=== PATIENT | male | born 1945 | race Caucasian/White ===

== ENCOUNTER 2020-02-26 08:09 | Outpatient (CLI) | payer OTHER, SELFPAY ==
--- NOTE | ~2020-02-26 | NM_ITS ---
EXAMINATION: NM bone scan whole body DATE: 02/26/2020 11:59 INDICATION: Prostate cancer TECHNIQUE: 26.5 mCi Tc-99m HDP was administered intravenously. Delayed whole-body scintigrams were o btained. COMPARISON: CT abdomen and pelvis dated 02/26/2020 FINDINGS: Moderate likely degenerative joint centered uptake extending along the L2-L3 disc space with correspo nding severe disc height loss and degenerative endplate changes evident at this level on prior CT. Si milar slightly less intense likely degenerative uptake centered along the L1-L2, C5-6 and T6-T7 disc spaces. There is also mild likely degenerative joint centered uptake at the bilateral acromioclavicul ar joints and several of the bilateral cervical facet joints. Mild increased uptake at the right grea ter trochanter with corresponding small enthesophytes on the prior CT. No other suspicious foci of ab normal bone uptake to suggest metastatic disease. IMPRESSION: 1. Typical distribution/appearance of a few foci of likely degenerative bone uptake as detailed above . No lesion suspicious for metastatic disease. Reviewed, dictated and finalized at location A. IMPRESSION: 1. Typical distribution/appearance of a few foci of likely degenerative bone up take as detailed above. No lesion suspicious for metastatic disease.
--- NOTE | ~2020-02-26 | CT_ITS ---
EXAMINATION: CT abdomen pelvis w con DATE: 02/26/2020 08:50 INDICATION: Prostate cancer TECHNIQUE: Computed tomography (CT) of the abdomen and pelvis was performed with 100 cc Omnipaque 350 intravenous contrast. Automated exposure control and iterative reconstruction technique were employe d. Exam dose: 716.36 mGy-cm total exam DLP. COMPARISON: None. FINDINGS: There is discoid atelectasis and/or scarring in both lung bases, including middle lobe and particularly left lower lobe. Mild predominantly dependent infiltrate or atelectasis at both lower lo bes. Normal heart size. No pericardial or pleural effusion. The liver, gallbladder, bile ducts, spleen, pancreas, pancreatic duct, and adrenal glands are unremar kable. 1.4-3.6 cm upper and lower pole right renal cysts 1.7 cm lower pole left renal cyst. 2.2 mm nonobstructing lower pole right renal calculus. 2 mm nonobstructing mid left renal calculus. No ureteral calculus or hydroureteronephrosis. There is mild diffuse thickening of the urinary bladder wall and moderate prostate enlargement. Small fat-containing inguinal hernias, left larger than right. There is atherosclerotic calcification but no aneurysm of the abdominal aorta or iliac arteries. No i ntraperitoneal or retroperitoneal or pelvic mass lesion or adenopathy or ascites. No evidence of appendicitis. Diverticulosis of the colon; no CT evidence of diverticulitis. No bowel obstruction, bowel wall thick ening, pneumatosis or intraperitoneal free air. Degenerative changes of the thoracic and lumbar spine, most pronounced at L2-3 with severe degenerati ve disease and mild retrolisthesis at this level. There is moderately prominent degenerative disc dis ease at L4-5 and L5-S1 due to a greater extent, with mild retrolisthesis at L5-S1. No suspicious osteolytic or osteoblastic lesions are noted. IMPRESSION: 1.4 and 3.6 cm right renal cysts. IMPRESSION: Bilateral renal cysts Small nonobstructing calculus of each kidney Prostate enlargement Diverticulosis of the colon; no CT evidence of diverticulitis Reviewed, dictated and finalized at [facility]. Reviewed, dictated and finalized at location A. IMPRESSION: 1.4 and 3.6 cm right renal cysts.
[2020-02-26 08:41] LABS: Estimated Glomerular Filt Rate 60
== END 2020-02-26 08:10 | disposition home or self-care (01) ==
PROVIDERS: PCP Family Medicine Adolescent Medicine; Visit Provider Urology
DX: C61 Malignant neoplasm of prostate (principal); N28.1 Cyst of kidney, acquired; N20.0 Calculus of kidney; N40.0 Benign prostatic hyperplasia without lower urinary tract symptoms; K57.30 Diverticulosis of large intestine without perforation or abscess without bleeding
CPT/HCPCS: 74177; 78306; A9561; Q9967

== ENCOUNTER 2020-03-23 09:54 | Outpatient (CLI) | payer OTHER, SELFPAY ==
--- NOTE | ~2020-03-23 | XR_ITS ---
EXAMINATION: XR chest 2V DATE: 03/23/2020 11:17 INDICATION: Malignant neoplasm of the prostate TECHNIQUE: Frontal and lateral views of the chest are obtained COMPARISON: None available FINDINGS: The lungs are free of focal airspace opacities. There is mild atelectasis of the lung bases . There is no pleural effusion or pneumothorax. The cardiomediastinal silhouette is normal. There is moderate thoracic spondylosis. IMPRESSION: 1. No acute cardiopulmonary abnormality. Reviewed, dictated and finalized at location A. OR HELPER
--- NOTE | 2020-03-23 10:53 | ECG_ITS ---
Measurements Intervals [place] Rate: 67 P: 47 KS: 184 QRS: -15 QRSD: 167 T: 99 QT: 447 QTc: 474 Interpretive Statements SINUS RHYTHM ATRIAL PREMATURE COMPLEXES LEFT BUNDLE BRANCH BLOCK BASELINE ARTIFACT- I, II, III, AVR, AVL, AVF ABNORMAL ECG Electronically Signed On 03-23-2020 12:19:04 [employer]OUNTS RECEIVABLE COLLECTOR by Robert Ribeiro D.O.
[2020-03-23 12:11] LABS: Add Urine Microscopic? NO; Appearance Urine Clear (Clear); Bilirubin Urine Negative (Negative); Blood Urine Negative (Negative); Color Urine Yellow (Yellow); Glucose Urine UA Negative (Negative); Ketones Urine Negative (Negative); Leukocyte Esterase Ur Negative LEU/UL (Negative); Nitrate Urine Negative (Negative); Protein Urine Negative (Negative); Specific Grav Ur 1.015 (1.001-1.035); Urobilinogen Urine Negative mg/dL (<2.0)
[2020-03-23 12:15] LABS: Basophils Absolute Auto 0.1 K/mm3 (0.0-0.1); Basophils Percent Auto 0.6 % (0.2-1.2); Eosinophils Absolute Auto 0.1 K/mm3 (0-0.3); Hematocrit 47.7 % (42.0-52.0); Hemoglobin 16.1 g/dL (14.0-18.0); Immature Granulocyte Absolute 0.03 K/mm3 (0.00-0.031); Immature Granulocyte Percent A 0.4 % (0-0.5); Lymphocytes Absolute Auto 2.11 K/mm3 (0.9-3.2); Lymphocytes Percent Auto 27.3 % (18.3-44.2); Mean Corpuscular HGB Conc 33.8 g/dl (32-36); Mean Corpuscular Hemoglobin 31.6 pg (26-34); Mean Corpuscular Volume 93.7 fl (80-100); Mean Platelet Volume 10.1 fl (7.4-10.4); Monocytes Absolute Auto 0.5 K/mm3 (0.1-0.6); Neutrophils Absolute Auto 4.9 K/mm3 (1.3-6.7); Neutrophils Percent Auto 63.7 % (45.5-73.1); Platelet Count Result 201 k/mm3 (150-375); Red Blood Count 5.09 M/mm3 (4.6-6.20); Red Cell Distribution Width 13.3 % (11.5-14.5); White Blood Count 7.7 K/mm3 (4.5-10.0)
[2020-03-23 12:22] LABS: Alanine Aminotransferase 47 U/L (4-50); Albumin Level 4.2 g/dL (3.5-5.1); Alkaline Phosphatase 72 U/L (38-126); Anion Gap 9 mmol/L (8-16); Aspartate Amino Transferase 38 U/L (17-59); Bilirubin,Total 0.5 mg/dL (0.2-1.3); Blood Urea Nitrogen 18 mg/dL (9-20); Calcium 9.6 mg/dL (8.4-10.2); Carbon Dioxide 30 mmol/L (22-30); Chloride 102 mmol/L (98-107); Estimated Glomerular Filt Rate > 60; Glucose 94 mg/dL (75-110); Potassium 4.4 mmol/L (3.4-5.0); Sodium 141 mmol/L (137-145)
[2020-03-23 12:23] LABS: Prothrombin Time 13.8 Seconds (11.1-14.7)
[2020-03-23 12:24] LABS: Partial Thromboplastin Time 36.2 SECONDS (22.3-36.8)
== END 2020-03-23 09:55 | disposition home or self-care (01) ==
LOC: ANHSURGERY 09:55
PROVIDERS: PCP Family Medicine Adolescent Medicine; Visit Provider Urology
DX: Z01.812 Encounter for preprocedural laboratory examination (principal); Z01.83 Encounter for blood typing; Z01.810 Encounter for preprocedural cardiovascular examination; C61 Malignant neoplasm of prostate
CPT/HCPCS: 36415; 71046; 80053; 81003; 85025; 85610; 85730; 86850; 86900; 86901; 93005

== ENCOUNTER 2020-03-29 03:29 | Outpatient (CLI) | payer OTHER, SELFPAY ==
[2020-03-29 20:39] LABS: SARS-CoV-2 RNA PCR Negative
== END 2020-03-29 03:30 | disposition home or self-care (01) ==
LOC: ANHCOVIDDT 03:29
PROVIDERS: PCP Family Medicine Adolescent Medicine; Visit Provider Urology
DX: Z01.818 Encounter for other preprocedural examination (principal); Z20.828 Contact with and (suspected) exposure to other viral communicable diseases
CPT/HCPCS: 87635; C9803; U0003

== ENCOUNTER 2020-04-01 00:24 | Day surgery (SDC) | payer OTHER, SELFPAY ==
[2020-03-23 10:08] VITALS: BMI 29.1
[2020-03-23 10:09] VITALS: BP 136/74; PULSE 74; RESP 16; TEMP 37.1; O2SAT 94
--- NOTE | 2020-03-29 07:47 | P.HP_ITS ---
H&P: HPI History of Present Illness Date/Time: 03/29/20 07:47 Chief complaint: Prostate Ca Narrative: Arnold Huerta is a 74 year old male Who was recently referred with a PSA of 11.6. Prostate ultrasound and biopsy demonstrated 7 of 12 cores with [place] score 6 and 3+4=7. His prostate volume was 27.7 g on ultrasound. Staging CT scan of the abdomen and pelvis, bone scan and chest x- ray were unremarkable. After careful discussion of therapeutic options including radiation therapy and its various forms, active surveillance, androgen ablation and robotic radical prostatectomy he has elected for the latter. He is aware of the risks including, but not limited to, adverse cardiopulmonary events, urinary incontinence, erectile dysfunction, rectal injury (with possible need for diverting colostomy) and mortality. Patient previously has erectile dysfunction reports not being sexually active for approximately 20 years. Review of Systems Cardiovascular: Cardiovascular: Denies chest pain, Denies lightheadedness, Denies palpitations and Denies dyspnea Respiratory: Respiratory: Denies dyspnea Gastrointestinal: Gastrointestinal: Denies diarrhea, Denies nausea and Denies vomiting Genitourinary: Genitourinary: Denies hematuria and Denies dysuria Endocrine: Endocrine: Denies palpitations [facility] Social History Social History Smoking status: Never smoker Alcohol intake: never Substance use: never Spiritual care concerns: No Meds Home Medications and Allergies Home Medications Medication Instructions Recorded Confirmed Type Glucosamine Chondroitin 1 tab-cap PO DAILY 03/23/20 03/23/20 History diclofenac sodium 75 mg PO BID 03/23/20 03/23/20 History simvastatin 40 mg PO QAM 03/23/20 03/23/20 History Allergies Allergy/AdvReac Type Severity Reaction Status Date / Time tetracycline Allergy Intermediate SWELLING Verified 03/23/20 10:03 Exam Const: General: no acute distress Resp: Effort & Inspection: normal respiratory effort GI: Inspection: non-distended GI Palp: No abdominal tenderness and No Guarding due to palpation present (GI) Auscultation: normal bowel sounds Assessment and Plan Assessment and plan (1) Prostate cancer: Code(s): C61 - Malignant neoplasm of prostate Status: Acute Assessment and Plan: * Robotic assisted radical prostatectomy with bilateral pelvic lymphadenectomy.
[2020-04-01] VITALS (14 sets, daily range): BP systolic 91–124; BP diastolic 50–73; PULSE 73–103; RESP 12–25; TEMP 36.2–37.6; O2SAT 93–100
--- NOTE | 2020-04-01 06:27 | WPDHPUPDATE1 ---
History and Physical Update Update Date/Time: 04/01/20 06:27 History and Physical has been reviewed, including an updated exam of the patient. There are NO changes in the patient's condition. Risks, benefits, and alternatives have been discussed and questions answered. Patient agrees to proceed with procedure.
[2020-04-01] MEDS: LACTATED RINGERS 1,000 ML 30 ML IV CONT ×2 (06:30→10:24)
--- NOTE | 2020-04-01 07:19 | P.PNAN_ITS ---
Anes - Initial Pre Proc Eval Procedure: Operation Date: 04/01/20 07:30 Proposed Procedures p Robotic Assisted Laparoscopic Prostatectomy With Bilateral Pelvic Lymph Node Dissection - Rudy Salter MD Date/Time: 04/01/20 07:19 Surgeon: Rudy Salter MD Pre Op Diagnosis: Prostate Ca Patient Data Age: 74 Gender: M Height: 5 ft 10 in Weight: 89.9 kg Last Vital Signs Temp 36.5 C 04/01/20 06:36 Pulse 81 04/01/20 06:36 Resp 16 03/23/20 10:09 BP 124/72 04/01/20 06:36 Pulse Ox 100 04/01/20 06:36 Allergies Allergy/AdvReac Type Severity Reaction Status Date / Time tetracycline Allergy Intermediate SWELLING Verified 03/23/20 10:03 Home Medications Medication Instructions Recorded Confirmed Type Glucosamine Chondroitin 1 tab-cap PO DAILY 03/23/20 04/01/20 History diclofenac sodium 75 mg PO BID 03/23/20 04/01/20 History simvastatin 40 mg PO QAM 03/23/20 04/01/20 History Patient hx anesthesia problems: post op nausea/vomiting Family hx anesthesia problems: none [facility] Past Medical History Medical History Hyperlipidemia Prostate cancer Social History Social History Smoking status: Never smoker Alcohol intake: never Substance use: never Living arrangements: with family Spiritual care concerns: No Anes - Eval Final PreProcedure Day of Procedure 04/01/20 07:19 Patient weight: overweight Heart: regular rate and rhythm Lungs: clear to auscultation Airway: Mallampati scale class II Neurological: alert and oriented Last oral intake: >/= 8 hours ASA classification: III Emergent: no Anesthetic plan: proceed Anesthesia type and monitoring: general ETT and standard monitoring Informed Consent: The patient's anesthetic plan and its attendant risks and benefits were discussed with the patient/family/POA. Questions were solicited and answers provided to the satisfaction of the patient/family/POA.
[2020-04-01] MEDS: ceFAZolin 2 GM/D5W 50 ML 2 GM/50 ML BAG IVPB (07:24)
--- NOTE | 2020-04-01 10:21 | PM.PROC ---
Procedure Note - Detailed Date of procedure: 04/01/20 Pre-op diagnosis: Prostate Ca Post-op diagnosis: same Procedure performed: 1. Robotic-assisted radical prostatectomy 2. Bilateral pelvic lymphadenectomy Description of procedure: The patient was brought to the operative suite, where he was prepped and draped in routine sterile fashion while in a dorsal lithotomy, deep Trendelenburg position. A supraumbilical 10 mm trocar was placed after insufflation of the abdomen with a Veress needle. Three robotic ports were then placed under direct vision. Two of these were placed in the right lower quadrant - 10 cm and 20 cm lateral to, and in line with, the umbilicus. A third robotic trocar was placed 10 cm to the left of the umbilicus, and 20 cm to the left of the umbilicus, a 12 mm standard laparoscopic trocar was placed to be used as an temporary administrative assistant port. Lastly, a 5 mm trocar was placed in the left upper quadrant midway between the umbilicus and the left robotic trocar. Attention was then turned to the prostatectomy. I opted for a posterior approach in this patient. An incision was made in the parietal peritoneum along the posterior bladder/posterior prostate about 2 cm above the reflection of the peritoneum over the anterior rectum. The seminal vesicles and vas deferens were immediately identified. Dissection is undertaken in a fashion so as to avoid electrocautery as much as possible, particularly near the tips of the seminal vesicles. Dissection was also carried out in the midline so as to avoid any encounters with the ureters. The vas deferens and the seminal vesicles were dissected in their entirety to the base of the prostate. The plane anterior to Denoviller's fascia, anterior to the rectum and posterior to the prostate was then developed. I then dropped the bladder by incising the anterior parietal peritoneum just lateral to the median umbilical ligaments bilaterally. The bladder was dropped from the anterior abdominal and pelvic wall. The endopelvic fascia was identified and incised bilaterally, allowing for dissection of the posterior-lateral aspect of the prostate. The puboprostatic ligaments were transected near their origin from the posterior pubic ramus. This posterior lateral dissection of the prostate is also undertaken in a fashion so as to avoid electrocautery as much as possible. The dorsal vein of the penis is then secured with an 0 -Vicryl ligature. Attention is then turned to the bladder neck. The anterior bladder neck is incised at the vesico-prostatic junction. The previously placed urethral catheter was drawn through the urethrotomy. A very small bladder neck was maintained throughout the remainder of this dissection. The posterior bladder neck was incised in a fashion so as to avoid any injury to the ureteral orifices. Again, the small aperture of the bladder neck was maintained. The previously dissected vas deferens and the seminal vesicles were brought through the posterior bladder neck incision. The lateral prostatic pedicles were then carefully dissected from the lateral aspect of the prostate bilaterally. The prostatic pedicles were secured with Weck clips and transected. The neurovascular bundles were carefully dissected from the posterior-lateral aspect of the prostate. The dorsal vein of the penis was incised with electrocautery. Using cold scissors, the urethra was incised. After withdrawing the previously placed urethral catheter, the posterior urethra was sharply incised, as was the rectalurethralis muscle. Attention was then turned to a bilateral pelvic lymphadenectomy. The limits of this dissection were similar bilaterally. Specifically, the limits were the bifurcation of the common iliac vein proximally, the inguinal ligament distally, the obturator nerve posteriorly and the anterior aspect to the external iliac vein laterally. This dissection was undertaken with care to avoid any injury to the obturator nerve. The pro
[2020-04-01] MEDS: fentaNYL CITRATE INJ (*CRX) 100 MCG/2 ML VIAL 25 MCG IV PUSH ×8 (10:33→11:18)
[2020-04-01] MEDS: ONDANSETRON INJ 4 MG/2 ML VIAL IV PUSH (10:40)
--- NOTE | 2020-04-01 11:57 | ADMGEN ---
This patient, Arnold Huerta, was admitted to Medical Room 241-01. Patient/family oriented to hospital policies and general routines including ID bracelet, bed and alarms, visiting hours, pain management, procedures, bathroom and other care routines, personal items, smoking policy, room service/diet, and visiting hours. Information on how to activate the Rapid Response Team has been discussed. Patient/Family are encouraged to report perceived risks to care and to ask questions if they do not understand what they are told or what they should do.
[2020-04-01] MEDS: LACTATED RINGERS 1,000 ML 125 ML IV CONT ×2 (12:14→23:03)
[2020-04-01] MEDS: HYOSCYAMINE SULFATE 0.125 MG TABLET SUBLINGUAL (13:22)
[2020-04-02 01:29] VITALS: BP 109/61; PULSE 64; RESP 16; TEMP 37; O2SAT 93
[2020-04-02 04:57] VITALS: BP 103/56; PULSE 81; RESP 16; TEMP 36.6; O2SAT 94
[2020-04-02 05:37] LABS: Hematocrit 38.5 % (42.0-52.0); Hemoglobin 13.1 g/dL (14.0-18.0)
[2020-04-02] MEDS: LACTATED RINGERS 1,000 ML 125 ML IV CONT (05:51)
[2020-04-02 05:53] LABS: Anion Gap 3 mmol/L (8-16); Blood Urea Nitrogen 15 mg/dL (9-20); Calcium 8.4 mg/dL (8.4-10.2); Carbon Dioxide 30 mmol/L (22-30); Chloride 102 mmol/L (98-107); Estimated CRCL calculation 61 ml/min; Estimated Glomerular Filt Rate > 60; Glucose 107 mg/dL (75-110); Potassium 4.1 mmol/L (3.4-5.0); Sodium 135 mmol/L (137-145)
--- NOTE | 2020-04-02 07:28 | WPDUROPN2 ---
Progress Note: A&P Assessment and Plan (1) Adenocarcinoma of prostate: Code(s): C61 - Malignant neoplasm of prostate Status: Acute Additional Plan Doing well postoperative day 1. Increase activity. Discharge later this afternoon if continues to do well. Follow-up in 1 week with catheter cystogram with Dr. Salter Subjective Subjective Date/Time Seen: 04/02/20 07:28 Post Op day: 1 Principal diagnosis: Adenocarcinoma of the prostate Interval history: No complaints at this time. Has been up and ambulating. Urine is clear Review of Systems Review of Systems: All systems reviewed & are unremarkable except as noted in HPI and below Exam Const: General: cooperative and comfortable HENMT: Head: normal to inspection Eyes: General: appearance normal, both eyes and all related structures Resp: Effort & Inspection: normal respiratory effort Cardio: Rate: regular rate GI: GI Palp: Yes Soft to palpation Urinary Catheter: Urinary Catheter: patent and draining and urine clear Objective Data Vital Signs Vital Signs: Vital Signs - 24 hr 04/01/20 10:24 04/01/20 10:35 04/01/20 10:50 Temperature 36.6 C Pulse Rate 75 85 78 Respiratory Rate 19 25 H 18 Blood Pressure 96/68 L 93/56 L 110/50 L Pulse Oximetry 95 94 98 04/01/20 10:55 04/01/20 11:05 04/01/20 11:20 Temperature Pulse Rate 81 78 Respiratory Rate 25 H 14 Blood Pressure 111/60 113/71 Pulse Oximetry 99 93 93 04/01/20 11:35 04/01/20 11:50 04/01/20 12:05 Temperature 36.3 C L 36.2 C L Pulse Rate 73 77 81 Respiratory Rate 12 16 16 Blood Pressure 117/73 109/64 91/63 L Pulse Oximetry 93 98 99 04/01/20 12:35 04/01/20 13:35 04/01/20 18:00 Temperature 36.4 C L 36.2 C L 37.6 C Pulse Rate 90 96 103 H Respiratory Rate 16 16 16 Blood Pressure 117/67 107/66 110/70 Pulse Oximetry 95 95 93 04/01/20 21:17 04/02/20 01:29 04/02/20 04:57 Temperature 37.2 C 37.0 C 36.6 C Pulse Rate 96 64 81 Respiratory Rate 16 16 16 Blood Pressure 108/63 109/61 103/56 L Pulse Oximetry 96 93 94 Intake/Output Intake/Output: Intake & Output 03/30/20 03/31/20 04/01/20 04/02/20 23:59 23:59 23:59 23:59 Intake Total 2790 1300 Output Total 450 1000 Balance 2340 300 Meds/Results Medications: Active Medications Generic Name Dose Route Start Last Admin Trade Name Freq PRN Reason Stop Dose Admin Hyoscyamine 0.125 mg 04/01/20 11:44 04/01/20 13:22 Hyoscyamine Sulfate 0.125 Mg Tablet SUBLINGUAL 0.125 mg Q4H PRN Administration Bladder Spasm Lactated Ringer's 1,000 mls @ 125 mls/hr 04/01/20 11:44 04/02/20 05:51 Lr - Lactated Ringers Iv IV CONT 125 mls/hr .Q8H BRIANDA Administration Acetaminophen 1,000 mg in 100 mls @ 400 mls/hr 04/01/20 12:20 04/02/20 06:27 Ofirmev 1,000 Mg Ivpb IVPB 04/02/20 12:21 400 mls/hr Q6H BRIANDA Administration Ketorolac Tromethamine 15 mg 04/01/20 12:18 Ketorolac 15 Mg/Ml Vial (*Bkc) IV PUSH Q6H PRN Pain Rated 4-6 Levofloxacin 500 mg 04/02/20 09:00 Levofloxacin Tab 500 Mg Tablet PO DAILY [facility] Naloxone HCl 0.1 mg 04/01/20 11:44 Naloxone Hcl 0.4 Mg/Ml Vial IV PUSH Q2M PRN Opiate Reversal Ondansetron HCl 4 mg 04/01/20 12:19 Ondansetron Inj 4 Mg/2 Ml Vial IV PUSH Q4H PRN Nausea And Vomiting Simvastatin 40 mg 04/02/20 09:00 Simvastatin 20 Mg Tablet PO QAM [facility] Labs Labs: Laboratory Results - last 24 hr 04/02/20 04/02/20 05:08 05:08 Hgb 13.1 L D Hct 38.5 L Sodium 135 L Potassium 4.1 Chloride 102 Carbon Dioxide 30 Anion Gap 3 L BUN 15 Creatinine 1.00 Estim Creat Clear Calc 61 Estimated GFR > 60 Glucose 107 Calcium 8.4
--- NOTE | 2020-04-02 07:54 | WPDANESPN ---
Anes - Prog Note Post-Op Date/Time: 04/02/20 07:54 Cardiovascular status: normal Respiratory status: normal Airway patency: baseline Mental status: baseline Post-Op hydration status: normal Vital Signs: Last Vital Signs Temp 36.6 C 04/02/20 04:57 Pulse 81 04/02/20 04:57 Resp 16 04/02/20 04:57 BP 103/56 L 04/02/20 04:57 Pulse Ox 94 04/02/20 04:57 Pain Score (VAS): 06/30 I/O: Intake & Output 04/01/20 04/01/20 04/02/20 15:59 23:59 07:59 Intake Total 820 1920 1300 Output Total 444 961 2628 Balance 520 1770 300 Laboratory Tests 04/02/20 05:08 04/02/20 05:08 04/02/20 04/02/20 05:08 05:08 Hgb 13.1 L D Hct 38.5 L Sodium 135 L Potassium 4.1 Chloride 102 Carbon Dioxide 30 Anion Gap 3 L BUN 15 Creatinine 1.00 Estim Creat Clear Calc 61 Estimated GFR > 60 Glucose 107 Calcium 8.4 Post-procedural complaints: none Patient Feedback: Patient satisfied with anesthetic care.
[2020-04-02] MEDS: HYOSCYAMINE SULFATE 0.125 MG TABLET SUBLINGUAL (08:55)
[2020-04-02] MEDS: SIMVASTATIN 20 MG TABLET 40 MG PO (08:55)
[2020-04-02 10:00] VITALS: BP 111/69; PULSE 80; RESP 14; TEMP 36.7; O2SAT 96
== END 2020-04-02 13:03 | disposition home or self-care (01) ==
LOC: ANHSURGERY 05:55 → ANH2MED 11:50
PROVIDERS: PCP Family Medicine Adolescent Medicine; Visit Provider Urology
PROC: 0VT04ZZ Resection of Prostate, Percutaneous Endoscopic Approach (ICD-10-PCS; CPT 55867; principal; 2020-04-01 07:30)
DX: C61 Malignant neoplasm of prostate (principal); E78.5 Hyperlipidemia, unspecified
CPT/HCPCS: 55866; 38571; S2900; 36415; 80048; 85014; 85018; 88305; 88307; A9270; J0131; J0690; J1100; J1170; J2405; J2704; J2710; J3010; J7030; J7120

== ENCOUNTER 2020-04-09 11:00 | Outpatient (CLI) | payer OTHER, SELFPAY ==
--- NOTE | ~2020-04-09 | XR_ITS ---
EXAMINATION: XR cystogram EXAM DATE: 04/09/2020 11:41 INDICATION: Prostate cancer, prostatectomy. TECHNIQUE: Fluoroscopy used during cystogram performed through Paige catheter in place on patient arr ival. Patient tolerated approximately 200 mL of Omnipaque saline solution. Dose reduction digital pul sed fluoroscopy was used at 4 frames per second with DAP 15 Gycm2. FINDINGS: Paige catheter in position. There is no contrast extravasation from the bladder or urethra . Normal-appearing bladder wall. No ureteral reflux. Small amount of urethral contrast did leak aroun d the Paige catheter, out of the penis. IMPRESSION: Unremarkable bladder. No evidence of urethral injury. Reviewed, dictated and finalized at location A. PS SOLUTIONS ARCHITECT
== END 2020-04-09 11:01 | disposition home or self-care (01) ==
PROVIDERS: PCP Family Medicine Adolescent Medicine; Visit Provider Urology
DX: C61 Malignant neoplasm of prostate (principal)
CPT/HCPCS: 51600; 74430; Q9967

== ENCOUNTER → 2023-02-05 10:21 | Outpatient (CLI) | payer OTHER, SELFPAY ==
--- NOTE | ~2023-02-05 | XR_ITS ---
AP view of the pelvis and AP and lateral views of the right hip Clinical history: Pain Findings: No acute fracture or dislocation is seen. Osseous alignment is anatomic. Bilateral hip and SI joint spaces are preserved. Soft tissues are unremarkable. Impression: No significant abnormality is seen. Reviewed, dictated and finalized at [facility]. Impression: No significant abnormality is seen.
--- NOTE | ~2023-02-05 | XR_ITS ---
Lumbosacral Spine: AP and lateral views Clinical History: Pain Findings: The normal lordotic curve is maintained. No fracture or subluxation evident. There is advan elly degenerative disc narrowing at L1-L2, L2-L3, and L5-S1. There is moderate facet arthropathy throu ghout the lumbar spine. The sacroiliac joints are normally outlined. Impression: Moderate degenerative spondylosis, as above. Reviewed, dictated and finalized at location M. Impression: Moderate degenerative spondylosis, as above.
== END ==
PROVIDERS: PCP Family Medicine Adolescent Medicine; Visit Provider Nurse Practitioner Family
DX: M54.41 Lumbago with sciatica, right side (principal); M25.551 Pain in right hip; M47.896 Other spondylosis, lumbar region
CPT/HCPCS: 72100; 73502

== ENCOUNTER → 2023-02-17 11:01 | Outpatient (CLI) | payer OTHER, SELFPAY ==
--- NOTE | ~2023-02-17 | MR_ITS ---
EXAMINATION: MR lumbar spine wo con DATE: 02/17/2023 12:02 INDICATION: Intervertebral disc degeneration. Low back pain. Right upper leg pain. TECHNIQUE: Magnetic resonance imaging (MRI) of the lumbar spine was performed without intravenous con trast. Sequences included sagittal T2-weighted FSE, sagittal T2-weighted FS FSE, sagittal T1-weighted FSE, and axial T2-weighted FSE. COMPARISON: Lumbar spine radiographs 02/05/2023 FINDINGS: There are cysts in right kidney measuring up to 3.2 cm . There is 3 mm retrolisthesis of L2 on L3 and L5 on S1. Vertebral body heights are normal. There is severely decreased disc height at L1 -L2 and L2-L3, mildly decreased disc height at L3-L4, moderately decreased disc height at L4-L5, and severely decreased disc height at L5-S1 with endplate remodeling. The distal spinal cord signal inten sity is normal. The conus medullaris is at L1. The following disc levels are specifically discussed: L1-L2: The disc is bulging and has an annular fissure. There is mild bilateral facet joint osteoarthr itis. There is mild bilateral neural foraminal stenosis. There is mild central canal stenosis. L2-L3: The disc is bulging and has an annular fissure. There is mild bilateral facet joint osteoarthr itis. There is moderate right and mild left neural foraminal stenosis. There is mild central canal st enosis. L3-L4: The disc is bulging with superimposed right foraminal extrusion. There is moderate bilateral f acet joint osteoarthritis. There is moderate right and mild left neural foraminal stenosis. There is mild central canal stenosis. L4-L5: The disc is bulging and has an annular fissure. There is severe bilateral facet joint osteoart hritis. There is moderate bilateral neural foraminal stenosis. There is mild central canal stenosis. L5-S1: The disc is bulging and has an annular fissure. There is mild bilateral facet joint osteoarthr itis. There is moderate bilateral neural foraminal stenosis. There is mild central canal stenosis. IMPRESSION: 1. Severe lumbar spondylosis. Reviewed, dictated and finalized at location EManuel
== END ==
PROVIDERS: PCP Nurse Practitioner Family; Visit Provider Nurse Practitioner Family
DX: M51.36 Other intervertebral disc degeneration, lumbar region (principal); M54.41 Lumbago with sciatica, right side; M47.896 Other spondylosis, lumbar region
CPT/HCPCS: 72148

== ENCOUNTER 2023-11-05 09:36 | Outpatient (CLI) | payer OTHER, SELFPAY ==
--- NOTE | ~2023-11-05 | CT_ITS ---
EXAMINATION: CT abd pelvis lumbar wo con DATE: 11/05/2023 09:58 INDICATION: Left lower quadrant abdominal pain TECHNIQUE: Computed tomography (CT) of the abdomen, pelvis and lumbar spine was performed without int ravenous contrast. Automated exposure control and iterative reconstruction technique were employed. T he dose-length product was 832.38 mGy-cm. COMPARISON: Lumbar spine MR dated 02/17/[address] abdomen and pelvis dated 03/07/2020 FINDINGS: Abdomen and pelvis: Mild atelectasis at the bilateral lung bases. Heart size is normal. Atherosclerotic coronary artery c alcification. Aortic valve calcifications. No pericardial or pleural effusion. Liver, gallbladder, sp marleen, pancreas and bilateral adrenal glands are normal. Bilateral renal cysts the largest on the righ t measuring 4.0 cm. A couple nonobstructing renal stones in calyces of the lower right kidney the lar cinthia measuring 3 mm. 5 mm stone in the distal left ureter but without hydronephrosis or hydroureter. B ladder is normal. Status post interval prostatectomy. There is mild to moderate colonic diverticulosi s with a sigmoid predominance. There is no adjacent inflammatory change to suggest diverticulitis. Sm all bowel and appendix are normal. Tiny fat-containing umbilical hernia and small fat-containing left inguinal hernia. No free intraperitoneal gas or fluid. No pathologically enlarged abdominal or pelvi c lymphadenopathy. Lumbar spine: 3 mm retrolisthesis L2 on L3 and L5 on S1. Vertebral body heights are normal. No fracture. Severe dis c height loss at L1-L2, L2-L3, moderate severity disc height loss at L5-S1, moderate disc height loss at L4-L5 and T7-T8 through T11-12 and mild disc height loss at L3-L4. Disc bulges at each level of t he lumbar spine contributing to moderate central canal stenosis at L3-L4 and mild neural from stenosi s at remaining levels. Lumbar facet osteoarthritis, severe at the left and moderate on the right at L 4-L5 and mild throughout the remainder of the lumbar spine. This contributes to multilevel moderate n eural foraminal stenosis throughout the lumbar spine. IMPRESSION: 1. Nephrolithiasis with 5 mm nonobstructing distal left ureteral stone without associated hydroureter onephrosis. 2. Severe lumbar spondylosis. Reviewed, dictated and finalized at location A. IMPRESSION: 1. Nephrolithiasis with 5 mm nonobstructing distal left ureteral stone without associated hydroureteronephrosis. 2. Severe lumbar spondylosis.
== END 2023-11-05 09:37 ==
LOC: MICIMG 09:38
PROVIDERS: PCP Family Medicine Adolescent Medicine; Visit Provider Family Medicine Adolescent Medicine
DX: R10.32 Left lower quadrant pain (principal); N20.0 Calculus of kidney; M47.896 Other spondylosis, lumbar region
CPT/HCPCS: 72131; 74176

== ENCOUNTER 2025-02-27 15:03 | Outpatient (CLI) | payer OTHER, SELFPAY ==
--- NOTE | ~2025-02-27 | XR_ITS ---
XR lumbar spine min 4V Indication: M51.16 - Intervertebral disc disorders with radiculopathy... Comparison: None Findings: Grade 1 anterolisthesis of L4 on L5, no fracture. Moderate to severe loss of disc height throughout, no subluxation flexion and extension Soft tissues unremarkable Impression: No acute abnormality. Reviewed, dictated and finalized at location P. Impression: No acute abnormality.
--- NOTE | ~2025-02-27 | MR_ITS ---
EXAMINATION: MR lumbar spine wo con DATE: 02/27/2025 15:31 INDICATION: Intervertebral disc disorders with radiculopathy. Low back pain. TECHNIQUE: Magnetic resonance imaging (MRI) of the lumbar spine was performed without intravenous contrast. Sequences included sagittal T2-weighted FSE, sagittal T2-weighted FS FSE, sagittal T1-weighted FSE, and axial T2-weighted FSE. COMPARISON: Lumbar spine MRI 02/17/2023 FINDINGS: There is 3 mm retrolisthesis of L2 on L3. Vertebral body heights are normal. There is severely decreased disc height from L1-L2 through L5-S1. The distal spinal cord signal intensity is normal. The conus medullaris is at L1-L2. The following disc levels are specifically discussed: L1-L2: The disc is bulging and has an annular fissure. There is mild bilateral facet joint osteoarthritis. There is mild right and moderate left neural foraminal stenosis. There is mild central canal stenosis. L2-L3: The disc is bulging and has an annular fissure. There is mild bilateral facet joint osteoarthritis. There is mild bilateral neural foraminal stenosis. There is mild central canal stenosis. L3-L4: The disc is bulging and has an annular fissure. There is moderate bilateral facet joint osteoarthritis. There is moderate bilateral neural foraminal stenosis. There is moderate central canal stenosis. L4-L5: The disc is bulging and has an annular fissure. There is severe bilateral facet joint osteoarthritis. There is mild right and moderate left neural foraminal stenosis. There is mild central canal stenosis. There is severe stenosis of left lateral recess. L5-S1: The disc is bulging. There is mild bilateral facet joint osteoarthritis. There is moderate bilateral neural foraminal stenosis. There is mild central canal stenosis. IMPRESSION: 1. Severe lumbar spondylosis, mildly worsened from 02/17/2023. Reviewed, dictated and finalized at location E.
== END 2025-02-27 15:04 | disposition home or self-care (01) ==
PROVIDERS: PCP Family Medicine Adolescent Medicine; Visit Provider Nurse Practitioner Adult Health
DX: M51.16 Intervertebral disc disorders with radiculopathy, lumbar region (principal); M51.369 Other intervertebral disc degeneration, lumbar region without mention of lumbar back pain or lower extremity pain; M47.896 Other spondylosis, lumbar region
CPT/HCPCS: 72110; 72148

== ENCOUNTER 2025-03-17 10:05 | Day surgery (SDC) | payer OTHER, SELFPAY ==
[2025-03-13 11:20] VITALS: BMI 28.4
--- NOTE | ~2025-03-17 | XR_ITS ---
EXAMINATION: XR fluoroscopy no charge DATE: 03/17/2025 12:14 INDICATION: Bilateral L3, L4 and L5 medial branch blocks TECHNIQUE: 11 fluoroscopic images of the lumbar spine were obtained during pain management procedure performed by Dr. Hutton. Radiologist was not present for the imaging or procedure. The amount of fluoroscopy time used during this procedure was 0.8 minutes. The cumulative radiation dose was 14.75 mGy. COMPARISON: None. FINDINGS/IMPRESSION: Images demonstrate needles advanced with distal tips in minimal amounts of injected contrast positioned along the junctions of the superior transverse processes of L4, L5 and S1 on both the left and right the expected locations of the bilateral L3, L4 and L5 medial branches. See procedure note for further detail. Reviewed, dictated and finalized at location A.
[2025-03-17 11:19] VITALS: BP 150/85; PULSE 69; RESP 16; TEMP 37.1; O2SAT 99
--- NOTE | 2025-03-17 11:51 | WPDHPUPDATE1 ---
History and Physical Update Update Date/Time: 03/17/25 11:51 History and Physical has been reviewed, including an updated exam of the patient. There are NO changes in the patient's condition. Risks, benefits, and alternatives have been discussed and questions answered. Patient agrees to proceed with procedure.
--- NOTE | 2025-03-17 11:52 | P.OP_ITS ---
Procedure Note - Detailed Date of Procedure 03/17/25 Pre-op Diagnosis Lumbar Spondylosis w/o Myelopathy or Radiculopathy Post-op Diagnosis Same Procedure Performed Diagnostic bilateral Lumbar Medial Branch/Dorsal Ramus Blocks at L3, L4, L5 Treating the bilateral L4-5, L5-S1 Facet Joints Under Fluoroscopic Guidance and with Contrast Control. (4 levels blocked). Surgeon Bandar Hutton MD Billing Representative None. Anesthesia Local Description of Procedure INFORMED CONSENT: Risks, benefits and alternatives to the procedure were discussed in detail with the patient who expressed explicit understanding and consent to proceed. Patient was informed verbally and in written form regarding the risks associated with the procedure including the low risk of serious infection, bleeding/bruising, allergic reaction, nerve or organ injury, paralysis, procedural site pain or discomfort, worsening pain and/or mobility, failure to treat and/or disfigurement. The patient expressed explicit understanding and consent to proceed. All materials required for the procedure were available prior to procedure start. Site and side were marked prior to procedure and confirmed in the presence of the patient. PROCEDURE IN DETAIL: The patient was brought to the procedural suite and placed in the prone position. Patient was made comfortable with use of pillows under the head/chest, hips and ankles. Skin overlying the injection site on the affected side(s) was prepared broadly with ChloraPrep applicator and draped in a sterile manner. Aseptic technique was used throughout. The endplates of the vertebral bodies at the site(s) of interest were aligned in the AP view. I psilateral oblique angulation was utilized to optimize visualization of the intersection between the superior articulating process and transverse process at each target site. Local anesthesia was established by infiltration with approximately 5 mL of 1% lidocaine via a 1-1/2 inch 27-gauge needle. A 25-gauge 5.0 inch Quincke spinal needle was advanced until the needle tip contacted periosteum at the target site, right L3. Lateral view was utilized to confirm the appropriate placement of the needle tip just anterior to the facet line and superior to the pedicle. In the Lateral view, 0.25 mL of Omnipaque 300 contrast medium was injected after negative aspiration for CSF, blood or other bodily fluid, showing appropriate extra-articular spread of contrast without evidence of intravascular, foraminal or intrathecal placement. A 0.5 mL solution of 0.5% PF bupivacaine was injected after negative repeat aspiration. Appropriate spread of the injectate was confirmed with washout of previously injected contrast. No parasthesias were elicited. Needle was removed completely intact without difficulty. The same exact procedure was repeated for all remaining levels on the ipsilateral side, right L4, L5 medial branches/dorsal ramus, modified as necessary to accommodate for the new target location with identical findings and results and no evidence of complication. The same exact procedure was repeated for all remaining levels on the contralateral side, left L3, L4, L5 medial branches/dorsal ramus, modified as necessary to accommodate for the new target location with identical findings and results and no evidence of complication. Images were saved and documented in the patient chart. Patient's skin was cleaned and sterile bandage applied. The patient tolerated the procedure well. The patient was transported to the recovery area in stable condition where they were observed for an appropriate amount of time prior to discharge, without evidence of complication. Patient was instructed on the appropriate completion of a pain diary over the next 12-24 hours. The patient was instructed to avoid excessive activity for the next 48 hours, including climbing and frequent use of stairs. Showers only for 48 hours. They were instructed not to drive or operate heavy machinery for 24 hours. They are to monitor for severe headaches, fevers, chills, night sweats, erythema/swelling at the site or any other signs of infection, bleeding/bruising, bowel or bladder changes as well as new pain, weakness or numbness in the upper or lower extremity. Should they notice these changes, they are instructed to call our office immediately or report directly to the nearest Emergency Department if no answer or if after posted office hours. COMPLICATIONS: None COMMENTS: None CONTRAST WASTED: 28.5mL Omnipaque 300. Complications No immediate complications Condition Stable Disposition Same day [facility] Billing Surgery - Charge Forward: Surgery Billing
[2025-03-17 12:01] VITALS: BP 140/82; PULSE 70; RESP 12; O2SAT 93
[2025-03-17 12:07] VITALS: BP 137/81; PULSE 67; RESP 12; O2SAT 94
[2025-03-17] MEDS: BUPivacaine HCL 0.5% 10 ML AMP (12:07)
[2025-03-17 12:12] VITALS: BP 138/81; PULSE 71; RESP 12; O2SAT 95
[2025-03-17 12:16] VITALS: BP 132/77; PULSE 75; RESP 16; O2SAT 100
--- OUTSIDE RECORDS SUMMARY | 2025-03-17 12:23 | XMS_ITS | Clinical Summary ---
Author Organization [facility] Address [address] [place] [address] Care Team Providers Care Night Nurse Name Role Phone None, Provider Primary Care Provider Unavaila ble Immunizations Immunization Administration Dates Next Due MODERNA COVID-19 (12+) MRNA, LNP-S, PF, 100 MCG/ 0.5 ML DOSE 07/30/2020,07/02/2020 MODERNA COVID-19 (NEONATAL SOCIAL WORKER RAUL UTE), MRNA, LNP-S, PF, 50 MCG/ 0.25 ML DOSE 12/27/2021,04/13/2021 PFIZER COVID-19 BIVALENT (12 +) mRNA, LNP-S, PF, 30 MCG/0.3 ML DOSE 04/06/2022 Social History Tobacco Use Types Packs/Day Years Used Date Smoking Tobacco: Never Assessed Sex and Gender Information Value Date Recorded Sex Assigned at Not on file 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 Gender Identity Not on file Sexual Orientation Not on file Plan of Treatment Health Maintenance Due Date Last Done Comments Hepatitis C 08/25/1965 DTaP, Tdap and Td Vaccines (1 - Tdap) 08/25/1966 Pneumococcal Vaccine: 50+ Years (1 of 1 - PCV) 08/25/1997 Annual Medicare Wellness Visit 08/25/2012 Zoster Vaccines (2 of 3) 05/22/2016 03/27/2016 RSV Immunization or 60+ Years (1 - 1-dose 75+ series) 08/25/2022 COVID-19 Vaccine (6 - season) 2025 04/06/2022, 12/27/2021, 04/13/2021, Additional history exists Influenza Adult (#1) 2025 03/01/2020 Hepatitis A Vaccines Aged Out No long er eligible based on patient's age to complete this topic Meningococcal B Vaccine Aged Out No l onger eligible based on patient's age to complete this topic Meningococcal Vaccine Aged Out No kaye cinthia eligible based on patient's age to complete this topic RSV Immunizations Under 20 Months Aged Out No longer eligible based on patient's age to complete this topic Insurance [employer] Care Teams Night Nurse Relationship Specialty Start Date End Date None, Provider, PCP - General 05/09/20
--- OUTSIDE RECORDS SUMMARY | 2025-03-17 12:23 | XMS_ITS | Clinical Summary ---
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
== END 2025-03-17 12:33 | disposition home or self-care (01) ==
PROVIDERS: Visit Provider Anesthesiology Pain Medicine
PROC: (CPT 64493; principal; 2025-03-17 11:50)
DX: M47.816 Spondylosis without myelopathy or radiculopathy, lumbar region (principal); M48.061 Spinal stenosis, lumbar region without neurogenic claudication
CPT/HCPCS: 64493 ×2; 64494 ×2; 64495 ×2; 99199

== ENCOUNTER 2025-03-24 01:35 | Day surgery (SDC) | payer OTHER, SELFPAY ==
[2025-03-20 09:10] VITALS: BMI 28.1
--- NOTE | 2025-03-20 09:19 | PC.NURSE ---
[facility] has started construction of its new state of the art ER which will open Spring 2026. With this, we anticipate parking may be a challenge for some our surgical patients and families. Parking spaces are limited but are available for all Surgical, obstetrics, and ER patients sharing this lot. If you arrive and find you are having a hard time finding a parking space, please note that we understand the challenges, please drive around the hospital and park near Hospital Entrance 1. When you enter this entrance, you can ask a volunteer to direct or take you back to the surgical waiting area to check in. We appreciate everyone?s understanding of these expected challenges while we build for your future. Report to the Outpatient Waiting Room, entrance under the green pavilion located off [address], at time ___10:30am____ on date __03/24/25 . Planned Procedure Time: _11:30am .? Time changes happen often and if your time is changed the preop area will call you the afternoon before. - You and your visitor will be asked to self-screen and do not enter if you have any COVID symptoms. Please call surgeon if you need to reschedule. - A mask is optional within the hospital at this time. Patients may have light breakfast/fluids that am prior to 0930am, Then NPO until time of surgery except sip of water w meds if needed. Take only the following medications with a SIP of water on the morning of surgery: ____AM DO NOT STOP ANY OF YOUR OTHER PRESCRIPTION MEDICATIONS PRIOR TO SURGERY EXCEPT THE FOLLOWING Hold all vitamins and supplements for 3 days per anesthesiologist. Medications to discontinue per physician NONE Date to take last dose_NONE Please no make-up, nail lebanese, hairspray, perfume, deodorant, or body powder the day of surgery.? No jewelry (including any body piercings) or valuables the day of surgery, leave them at home.? Please take a shower or bath the night before, or the morning of, surgery with an antibacterial soap.? Wear comfortable, loose fitting clothing.? - Jewelry must be removed prior to entering the operating room.? Rings and piercings that are not removed may be cut off. - The hospital will not accept responsibility for valuables.? - Please leave all valuables, including medications, at home the day of surgery. If you are going home after surgery, a licensed dedicated intermodal truck driver must drive you home.? - NO public transportation without another adult if you receive anesthesia. - We recommend that an adult stay with you for 24 hours following discharge. - We also recommend that you do not drive, make important decision, drink alcoholic beverages, or take any drugs that were not prescribed by your health care provider for at least 24 hours after your discharge time. Follow any additional instructions given to you from your surgeon. Telephone instructions given to __Denise and patient and asked if any additional questions and then verbalized understanding. Patient advised to call surgeon office or pre surgery nurse liaison [phone] if any additional questions.
--- NOTE | ~2025-03-24 | XR_ITS ---
EXAMINATION: XR fluoroscopy no charge INDICATION: BLOCK OF BILATERAL L3/4/5 MEDIAL BRANCHES . COMPARISON: None TECHNIQUE: 11 fluoroscopic images of the lumbar spine were obtained during nerve blocks. Fluoroscopy exposure time was 51 seconds. Air Kerma 21.491 mGy. DAP 3.6242 mGym2. FINDINGS/IMPRESSION: No radiologist was present or involved at the time of the procedure. Static images were submitted for interpretation. Images demonstrate placement of needles and injection of contrast into nerve sheaths. Fluoroscopic documentation of nerve blocks in the lumbar spine. Please refer to the operative note for complete procedural details. Reviewed, dictated and finalized at location A. PROGRAMMER
--- OUTSIDE RECORDS SUMMARY | 2025-03-24 01:38 | XMS_ITS | Clinical Summary ---
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
--- OUTSIDE RECORDS SUMMARY | 2025-03-24 01:38 | XMS_ITS | Clinical Summary ---
Author Organization [facility] Address [address] [place] [address] Care Team Providers Care Switching Operator Name Role Phone None, Provider Primary Care Provider Unavaila ble Immunizations Immunization Administration Dates Next Due MODERNA COVID-19 (12+) MRNA, LNP-S, PF, 100 MCG/ 0.5 ML DOSE 07/30/2020,07/02/2020 MODERNA COVID-19 (BRUSH MATERIAL PREPARER RAUL UTE), MRNA, LNP-S, PF, 50 MCG/ 0.25 ML DOSE 12/27/2021,04/13/2021 PFIZER COVID-19 BIVALENT (12 +) mRNA, LNP-S, PF, 30 MCG/0.3 ML DOSE 04/06/2022 Social History Tobacco Use Types Packs/Day Years Used Date Smoking Tobacco: Never Assessed Sex and Gender Information Value Date Recorded Sex Assigned at Not on file Legal Sex Male 12:36 PM NURSE WOUND Gender Identity Not on file Sexual Orientation [...] complete this topic Insurance [employer] Care Teams Switching Operator Relationship Specialty Start Date End Date None, Provider, PCP - General 05/09/20
[2025-03-24 10:15] VITALS: BP 139/77; PULSE 81; RESP 16; TEMP 36.8; O2SAT 98
--- NOTE | 2025-03-24 10:54 | WPDHPUPDATE1 ---
History and Physical Update Update Date/Time: 03/24/25 10:54 History and Physical has been reviewed, including an updated exam of the patient. There are NO changes in the patient's condition. Risks, benefits, and alternatives have been discussed and questions answered. Patient agrees to proceed with procedure.
--- NOTE | 2025-03-24 10:55 | P.OP_ITS ---
Procedure Note - Detailed Date of Procedure 03/24/25 Pre-op Diagnosis lumbar spondylosis and stenosis Post-op Diagnosis Same Procedure Performed Diagnostic bilateral Lumbar Medial Branch/Dorsal Ramus Blocks at L3, L4, L5 Treating the bilateral L4-5, L5-S1 Facet Joints Under Fluoroscopic Guidance and with Contrast Control. (4 levels blocked). Surgeon Bandar Hutton MD Photographic Specialist None. Anesthesia Local Description of Procedure INFORMED CONSENT: Risks, benefits and alternatives to the procedure were discussed in detail with the patient who expressed explicit understanding and consent to proceed. Patient was informed verbally and in written form regarding the risks associated with the procedure including the low risk of serious infection, bleeding/bruising, allergic reaction, nerve or organ injury, paralysis, procedural site pain or discomfort, worsening pain and/or mobility, failure to treat and/or disfigurement. The patient expressed explicit understanding and consent to proceed. All materials required for the procedure were available prior to procedure start. Site and side were marked prior to procedure and confirmed in the presence of the patient. PROCEDURE IN DETAIL: The patient was brought to the procedural suite and placed in the prone position. Patient was made comfortable with use of pillows under the head/chest, hips and ankles. Skin overlying the injection site on the affected side(s) was prepared broadly with ChloraPrep applicator and draped in a sterile manner. Aseptic technique was used throughout. The endplates of the vertebral bodies at the site(s) of interest were aligned in the AP view. Ipsilateral oblique angulation was utilized to optimize visualization of the intersection between the superior articulating process and transverse process at each target site. Local anesthesia was established by infiltration with approximately 5 mL of 1% lidocaine via a 1-1/2 inch 27-gauge needle. A 25-gauge 5.0 inch Quincke spinal needle was advanced until the needle tip contacted periosteum at the target site, right L3. Lateral view was utilized to confirm the appropriate placement of the needle tip just anterior to the facet line and superior to the pedicle. In the Lateral view, 0.25 mL of Omnipaque 300 contrast medium was injected after negative aspiration for CSF, blood or other bodily fluid, showing appropriate extra-articular spread of contrast without evidence of intravascular, foraminal or intrathecal placement. A 0.5 mL solution of 2.0% PF lidocaine was injected after negative repeat aspiration. Appropriate spread of the injectate was confirmed with washout of previously injected contrast. No parasthesias were elicited. Needle was removed completely intact without difficulty. The same exact procedure was repeated for all remaining levels on the ipsilateral side, right L4, L5 medial branches/dorsal ramus, modified as necessary to accommodate for the new target location with identical findings and results and no evidence of complication. The same exact procedure was repeated for all remaining levels on the contralateral side, left L3, L4, L5 medial branches/dorsal ramus, modified as necessary to accommodate for the new target location with identical findings and results and no evidence of complication. Images were saved and documented in the patient chart. Patient's skin was cleaned and sterile bandage applied. The patient tolerated the procedure well. The patient was transported to the recovery area in stable condition where they were observed for an appropriate amount of time prior to discharge, without evidence of complication. Patient was instructed on the appropriate completion of a pain diary over the next 12-24 hours. The patient was instructed to avoid excessive activity for the next 48 hours, including climbing and frequent use of stairs. Showers only for 48 hours. They were instructed not to drive or operate heavy machinery for 24 hours. They are to monitor for severe headaches, fevers, chills, night sweats, erythema/swelling at the site or any other signs of infection, bleeding/bruising, bowel or bladder changes as well as new pain, weakness or numbness in the upper or lower extremity. Should they notice these changes, they are instructed to call our office immediately or report directly to the nearest Emergency Department if no answer or if after posted office hours. COMPLICATIONS: None COMMENTS: None CONTRAST WASTED: 28.5mL Omnipaque 300. Complications No immediate complications Condition Stable Disposition Same day [facility] Billing Surgery - Charge Forward: Surgery Billing
[2025-03-24 11:35] VITALS: BP 133/69; PULSE 80; RESP 18; O2SAT 95
[2025-03-24] MEDS: DEXAMETHASONE SODIUM PHOSP/PF 10 MG/ML 1 ML VIAL XX (11:38)
[2025-03-24] MEDS: LIDOCAINE 1% PF INJ 5 ML VIAL 10 ML INFILTRATE (11:39)
[2025-03-24] MEDS: LIDOCAINE 2% PF LOCAL INJ 5 ML VIAL 3 ML INFILTRATE (11:40)
[2025-03-24 11:46] VITALS: BP 121/75; PULSE 80; RESP 18; O2SAT 95
[2025-03-24 11:50] VITALS: BP 130/67; PULSE 76; RESP 16; O2SAT 99
== END 2025-03-24 12:08 | disposition home or self-care (01) ==
PROVIDERS: PCP Family Medicine Adolescent Medicine; Visit Provider Anesthesiology Pain Medicine
PROC: (CPT 64493; principal; 2025-03-24 11:30)
DX: M47.816 Spondylosis without myelopathy or radiculopathy, lumbar region (principal); M48.061 Spinal stenosis, lumbar region without neurogenic claudication; E78.5 Hyperlipidemia, unspecified; Z98.890 Other specified postprocedural states; Z85.46 Personal history of malignant neoplasm of prostate
CPT/HCPCS: 64493; 64494 ×2; 64495 ×2; 99199; J2003; Q9965

== ENCOUNTER 2025-04-07 07:56 | Day surgery (SDC) | payer OTHER, SELFPAY ==
[2025-03-31 12:24] VITALS: BMI 28.4
--- NOTE | ~2025-04-07 | XR_ITS ---
EXAM/PROCEDURE: XR fluoroscopy no charge HISTORY: THERMAL RF ABLATION JOHN L3,L4,L5 MEDIAL BRANCH/DORSAL RAMI COMPARISON: None available. TECHNIQUE: FINDINGS: IMPRESSION: No acute findings. Reviewed, dictated and finalized at location A. MOGRAPHER IMPRESSION: No acute findings.
[2025-04-07 08:25] VITALS: BP 155/78; PULSE 75; RESP 18; TEMP 36.8; O2SAT 100; BMI 27.8
[2025-04-07] MEDS: LACTATED RINGERS 1,000 ML 30 ML IV CONT (08:42)
--- NOTE | 2025-04-07 10:21 | SUR.PREOP ---
1000; PT AND SPOUSE UPDATED ON DELAY
--- NOTE | 2025-04-07 10:25 | WPDHPUPDATE1 ---
History and Physical Update Update Date/Time: 04/07/25 10:25 History and Physical has been reviewed, including an updated exam of the patient. There are NO changes in the patient's condition. Risks, benefits, and alternatives have been discussed and questions answered. Patient agrees to proceed with procedure.
--- NOTE | 2025-04-07 10:26 | W.PM.PROC2 ---
Procedure Note - Detailed Date of Procedure 04/07/25 Pre-op Diagnosis Lumbar Spondylosis w/o Myelopathy or Radiculopathy Post-op Diagnosis Same Procedure Performed Thermal Radiofrequency Ablation of the bilateral Lumbar Medial Branches/Dorsal Ramus at the L3, L4, L5 Levels Treating the bilateral L4-5, L5-S1 Facet Joints Under Fluoroscopic Guidance (4 Levels Treated). Surgeon Bandar Hutton MD Solar Power Installer None. Anesthesia Local (w/ MAC) Description of Procedure INFORMED CONSENT: Risks, benefits and alternatives to the procedure were discussed in detail with the patient who expressed explicit understanding and consent to proceed. Patient was informed verbally and in written form regarding the risks associated with the procedure including the low risk of serious infection, bleeding/bruising, allergic reaction, nerve or organ injury, paralysis, procedural site pain or discomfort, worsening pain and/or mobility, failure to treat and/or disfigurement. The patient expressed explicit understanding and consent to proceed. All materials required for the procedure were available prior to procedure start. Site and side were marked prior to procedure and confirmed in the presence of the patient. PROCEDURE IN DETAIL: The patient was brought to the procedural suite and placed in the prone position. Patient was made comfortable with use of pillows under the head/chest, hips and ankles. ASA standard monitors were applied and used throughout the procedure. Skin overlying the injection site on the affected side(s) was prepared broadly with ChloraPrep applicator and draped in a sterile manner. Aseptic technique was used throughout. The endplates of the vertebral bodies at the site(s) of interest were aligned in the AP view. Ipsilateral oblique angulation was utilized to optimize visualization of the intersection between the superior articulating process and transverse process at each target site. Local anesthesia was established by infiltration with approximately 5 mL of 1% lidocaine via a 1-1/2 inch 27-gauge needle divided over each site treated. A 16-gauge 100mm [employer] RF needle with curved 10mm active tip was advanced in the AP view until the needle tip contacted the periosteum at the target site, the right L3 medial branch. Lateral view was utilized to adjust and confirm the appropriate placement of the needle tip just anterior to the facet line, superior to the pedicle and posterior to the foramen. Grounding electrode was in place and functioning. The appropriately-sized RF cannula was inserted into the RF needle and motor stimulation was performed with no subjective or objective evidence of recruited muscle activity with stimulation up to 2.0 volts at a frequency of 2Hz. 1.5 mL of 2.0% PF lidocaine was injected after negative aspiration. After a 90s pause, lesioning was performed to 90 degrees centigrade for 90s ensuring lack of symptoms in the extremity throughout. Needle was rotated 180 degrees and lesioning repeated in a similar manner. Patient tolerated this well. No paresthesias were elicited. Needle was removed completely intact without difficulty. The same procedure was repeated for all intended levels/ structures on the ipsilateral side, right L4, L5 medial branch/dorsal ramus with identical methodology, modified to compensate for new location, with similar results and no evidence of complication. The same exact procedure was repeated for all remaining levels on the contralateral side, left L3, L4, L5 medial branches/dorsal ramus, modified as necessary to accommodate for the new target location with identical findings/results and no evidence of complication. Images were saved and documented in the patient chart. Patient's skin was cleansed and sterile bandage applied. The patient tolerated the procedure well. The patient was transported to the recovery area in stable condition where they were observed for an appropriate amount of time prior to discharge, without evidence of complication. The patient was instructed to avoid excessive activity for the next 48 hours, including climbing and frequent use of stairs. Showers only for 48 hours. They were instructed not to drive or operate heavy machinery for 24 hours. They are to monitor for severe headaches, fevers, chills, night sweats, erythema/swelling at the site or any other signs of infection, bleeding/bruising, bowel or bladder changes as well as new pain, weakness or numbness in the upper or lower extremity. Should they notice these changes, they are instructed to call our office immediately or report directly to the nearest Emergency Department if no answer or if after posted office hours. COMPLICATIONS: None COMMENTS: None Complications No immediate complications Condition Stable Disposition PACU [facility] Billing Surgery - Charge Forward: Surgery Billing
[2025-04-07] MEDS: LIDOCAINE 2% PF LOCAL INJ 5 ML VIAL 10 ML INFILTRATE (11:26)
[2025-04-07] MEDS: BUPivacaine HCL 0.5% 10 ML AMP INFILTRATE (11:26)
--- NOTE | 2025-04-07 11:26 | WPDANESEPPF ---
Anes - Initial Pre Proc Eval Procedure: Operation Date: 04/07/25 09:45 Proposed Procedures p Thermal Radiofrequency Ablation Bilateral L3, L4, L5 Medial Branch/Dorsal Rami Supplying Bilateral L4-5, L5-S1 Facet Joints under Fluoroscopic Guidance - Bandar Hutton MD Date/Time: 04/07/25 11:26 Surgeon: Bandar Hutton MD Pre Op Diagnosis: Lumbar Spondylosis w/o Myelopathy or Radiculopathy Patient Data Age: 79 Gender: M Height: 1.78 m Weight: 88.2 kg Last Vital Signs Temp 98.3 F 04/07/25 08:25 Pulse 75 04/07/25 08:25 Resp 18 04/07/25 08:25 BP 155/78 H 04/07/25 08:25 Pulse Ox 100 04/07/25 08:25 O2 Del Method Room Air 04/07/25 08:25 Allergies Allergy/AdvReac Type Severity Reaction Status Date / Time tetracycline Allergy Intermediate SWELLING Verified 04/07/25 08:09 Penicillins Allergy Mild Rash Verified 04/07/25 08:09 Home Medications ?Medication ?Instructions ?Recorded ?Confirmed ?Type simvastatin 40 mg tablet 40 mg PO QAM #90 tabs 08/29/24 04/07/25 Rx diclofenac sodium 75 mg 75 mg PO BID 04/02/25 04/07/25 History tablet,delayed release Patient hx anesthesia problems: none Family hx anesthesia problems: none Results Review: All pre-operative results and documents have been reviewed as part of the pre-operative evaluation. [facility] Past Medical History Medical History Dorsalgia Lumbar stenosis Lumbar spondylosis Hyperlipidemia Prostate cancer Surgical History Surgical History History of robot-assisted laparoscopic radical prostatectomy (2019) Hx of cataract surgery (~2019) Family History Family History Mother Hypertension Social History Social History Smoking status: Never smoker Second hand tobacco smoke exposure: Yes Alcohol intake: never Drinks per week: 0 Alcohol use details: rarely Substance use: never Substance use type: does not use Lack of Transportation: No Lack of Food: Never True Current Housing: I Have Housing Concerned About Future Housing: No Difficulty Paying Gas/Electric Bills: No Difficulty Paying for Meds: No Currently Unemployed: No Education: High School Diploma/GED Difficulty w/ Childcare or Family Care: No Living arrangements: with family Additional living arrangements comments: PT GAVE VERBAL PERMISSION TO SPEAK WITH MONCHO Spiritual care concerns: No Anes - Eval Final PreProcedure Day of Procedure 04/07/25 11:26 Heart: regular rate and rhythm Lungs: clear to auscultation Airway: Mallampati scale class II Neurological: alert and oriented Last oral intake: >/= 8 hours ASA classification: II Anesthetic plan: proceed Anesthesia type and monitoring: monitored anesthesia care Results Review: All pre-operative results and documents have been reviewed as part of the pre-operative evaluation. Informed Consent: The patient's anesthetic plan and its attendant risks and benefits were discussed with the patient/family/POA. Questions were solicited and answers provided to the satisfaction of the patient/family/POA.
[2025-04-07] MEDS: LIDOCAINE 1% PF INJ 5 ML VIAL INFILTRATE (11:27)
[2025-04-07 11:46] VITALS: BP 136/78; PULSE 78; RESP 12; O2SAT 96
[2025-04-07 12:15] VITALS: BP 131/91; PULSE 65; RESP 14; O2SAT 98
== END 2025-04-07 12:40 | disposition home or self-care (01) ==
PROVIDERS: PCP Family Medicine Adolescent Medicine; Visit Provider Anesthesiology Pain Medicine
PROC: (CPT 64635; principal; 2025-04-07 09:45)
DX: M47.816 Spondylosis without myelopathy or radiculopathy, lumbar region (principal)
CPT/HCPCS: 64635 ×2; 64636 ×6; 99199

== ENCOUNTER 2025-04-27 01:27 | Day surgery (SDC) | payer OTHER, SELFPAY ==
[2025-04-02 14:34] VITALS: BMI 28.5
--- OUTSIDE RECORDS SUMMARY | 2025-04-27 01:29 | XMS_ITS | Clinical Summary ---
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
--- OUTSIDE RECORDS SUMMARY | 2025-04-27 01:29 | XMS_ITS | Clinical Summary ---
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
[2025-04-27 06:13] VITALS: BMI 27.6
[2025-04-27 06:15] VITALS: BP 130/90; PULSE 92; RESP 16; TEMP 36.6; O2SAT 98
[2025-04-27] MEDS: LACTATED RINGERS 1,000 ML 150 ML IV CONT (06:25)
--- NOTE | 2025-04-27 06:56 | WPDANESEPPF ---
Anes - Initial Pre Proc Eval Procedure: Operation Date: 04/27/25 07:30 Proposed Procedures p Screening Colonoscopy - Seven Williamson MD Date/Time: 04/27/25 06:56 Surgeon: Seven Williamson MD Pre Op Diagnosis: Encounter for screening for malignant neoplasm of Patient Data Age: 79 Gender: M Height: 1.78 m Weight: 87.3 kg Last Vital Signs Temp 36.6 C 04/27/25 06:15 Pulse 92 04/27/25 06:15 Resp 16 04/27/25 06:15 BP 130/90 04/27/25 06:15 Pulse Ox 98 04/27/25 06:15 O2 Del Method Room Air 04/27/25 06:15 Allergies Allergy/AdvReac Type Severity Reaction Status Date / Time tetracycline Allergy Intermediate SWELLING Verified 04/27/25 06:12 Penicillins Allergy Mild Rash Verified 04/27/25 06:12 Home Medications ?Medication ?Instructions ?Recorded ?Confirmed ?Type simvastatin 40 mg tablet 40 mg PO QAM #90 tabs 08/29/24 04/27/25 Rx diclofenac sodium 75 mg 75 mg PO BID 04/02/25 04/27/25 History tablet,delayed release Patient hx anesthesia problems: none Family hx anesthesia problems: none Results Review: All pre-operative results and documents have been reviewed as part of the pre-operative evaluation. [facility] Past Medical History Medical History Dorsalgia Lumbar stenosis Lumbar spondylosis Hyperlipidemia Prostate cancer Surgical History Surgical History History of robot-assisted laparoscopic radical prostatectomy (2019) Hx of cataract surgery (~2019) Family History Family History Mother Hypertension Social History Social History Smoking status: Never smoker Second hand tobacco smoke exposure: Yes Alcohol intake: current Drinks per week: 0 Alcohol use details: rarely Substance use: never Substance use type: does not use Lack of Transportation: No Lack of Food: Never True Current Housing: I Have Housing Concerned About Future Housing: No Difficulty Paying Gas/Electric Bills: No Difficulty Paying for Meds: No Currently Unemployed: No Education: High School Diploma/GED Difficulty w/ Childcare or Family Care: No Living arrangements: with family Additional living arrangements comments: PT GAVE VERBAL PERMISSION TO SPEAK WITH MONCHO Spiritual care concerns: No Anes - Eval Final PreProcedure Day of Procedure 04/27/25 06:56 Patient weight: overweight Heart: regular rate and rhythm Lungs: clear to auscultation Airway: Mallampati scale class II Neurological: alert and oriented Last oral intake: >/= 8 hours ASA classification: II Emergent: no Anesthetic plan: proceed Anesthesia type and monitoring: general GIVS and standard monitoring Results Review: All pre-operative results and documents have been reviewed as part of the pre-operative evaluation. Informed Consent: The patient's anesthetic plan and its attendant risks and benefits were discussed with the patient/family/POA. Questions were solicited and answers provided to the satisfaction of the patient/family/POA.
--- NOTE | 2025-04-27 07:27 | PM.IMHP2 ---
H&P: HPI History of Present Illness Date/Time: 04/27/25 07:27 Chief Complaint: Screening colonoscopy Narrative: This is the patient's 3rd screening colonoscopy. There are no GI symptoms and there is no family history of colorectal cancer. colonoscopy. There are no GI symptoms and there is no family history of colorectal cancer. Review of Systems Review of Systems: All systems reviewed & are unremarkable except as noted in HPI and below PMFSH Past Medical History Medical History Dorsalgia Lumbar stenosis Lumbar spondylosis Hyperlipidemia Prostate cancer Surgical History Surgical History History of robot-assisted laparoscopic radical prostatectomy (2019) Hx of cataract surgery (~2019) Family History Family History Mother Hypertension Social History Social History Smoking status: Never smoker Second hand tobacco smoke exposure: Yes Alcohol intake: current Drinks per week: 0 Alcohol use details: rarely Substance use: never Substance use type: does not use Lack of Transportation: No Lack of Food: Never True Current Housing: I Have Housing Concerned About Future Housing: No Difficulty Paying Gas/Electric Bills: No Difficulty Paying for Meds: No Currently Unemployed: No Education: High School Diploma/GED Difficulty w/ Childcare or Family Care: No Living arrangements: with family Additional living arrangements comments: PT GAVE VERBAL PERMISSION TO SPEAK WITH MONCHO Spiritual care concerns: No Meds Home Medications and Allergies Home Medications ?Medication ?Instructions ?Recorded ?Confirmed ?Type simvastatin 40 mg tablet 40 mg PO QAM #90 tabs 08/29/24 04/27/25 Rx diclofenac sodium 75 mg 75 mg PO BID 04/02/25 04/27/25 History tablet,delayed release Allergies Allergy/AdvReac Type Severity Reaction Status Date / Time tetracycline Allergy Intermediate SWELLING Verified 04/27/25 06:12 Penicillins Allergy Mild Rash Verified 04/27/25 06:12 Vital Signs Vital Signs - 24 hr 04/27/25 06:15 Temperature 97.8 F Pulse Rate 92 Respiratory Rate 16 Blood Pressure 130/90 Pulse Oximetry 98 Oxygen Delivery Room Air Exam Const: General: cooperative and healthy appearing Resp: Effort & Inspection: normal respiratory effort and able to speak in complete sentences Auscultation: clear to auscultation bilaterally Cardio: Rate: regular rate Rhythm: regular rhythm GI: Inspection: normal to inspection GI Palp: No No hepatosplenomegaly present Auscultation: normal bowel sounds Rectal Exam: deferred Skin: General skin exam: normal color Psych: Appearance: grossly normal Mental Status: mental status grossly normal Assessment and Plan Assessment and plan (1) Encounter for screening colonoscopy: Code(s): Z12.11 - Encounter for screening for malignant neoplasm of colon Status: Acute Assessment and Plan: The patient is deemed a good candidate for the procedure. Consent signed. Will proceed. Prior Studies I have reviewed the following patient records and this information was taken into consideration when formulating the assessment and plan.: previous labs, previous ER visits, previous hospitalizations and previous clinic visits
[2025-04-27] MEDS: SIMETHICONE ORAL SUSPENSION 20 MG/0.3 ML 30 ML BOTTLE 0.6 ML IRRIGATION (07:36)
--- NOTE | 2025-04-27 07:44 | S_PTH ---
PATIENT: Arnold Huerta LOC: [facility] U#:[id number] AGE/SX: 79/M ROOM: RE04/27/[address]: Seven Williamson MD : 1945 BED: DIS: 04/27/2025 SPEC #: [id number] RECD: 04/27/25 10:25 STATUS: KELLI REQ #: [id number] BUD: 04/27/25 07:[address]: Seven Williamson DEPT: [facility] Surgical RECD BY: Sejal Plummer ENTERED: 04/27/25 10:30 SP TYPE: Surgical OTHR DR: Luis A Tomas DO Tissues: A - Colon Polypectomy Procedures: Hematoxylin and Eosin Stain Gross and Microscopic Level 4
[2025-04-27 07:46] VITALS: BP 108/67; PULSE 88; RESP 16; O2SAT 100
[2025-04-27 07:56] VITALS: BP 105/61; PULSE 81; RESP 16; O2SAT 98
[2025-04-27 08:06] VITALS: BP 122/79; PULSE 79; RESP 16; O2SAT 100
== END 2025-04-27 08:19 | disposition home or self-care (01) ==
PROVIDERS: PCP Family Medicine; Referring Provider Family Medicine Adolescent Medicine; Visit Provider Internal Medicine Gastroenterology
PROC: 0DJD8ZZ Inspection of Lower Intestinal Tract, Via Natural or Artificial Opening Endoscopic (ICD-10-PCS; CPT 45378; principal; 2025-04-27 07:30)
DX: Z12.11 Encounter for screening for malignant neoplasm of colon (principal); K63.5 Polyp of colon; K64.8 Other hemorrhoids; K57.30 Diverticulosis of large intestine without perforation or abscess without bleeding; E78.5 Hyperlipidemia, unspecified; M43.06 Spondylolysis, lumbar region; M48.061 Spinal stenosis, lumbar region without neurogenic claudication; Z98.890 Other specified postprocedural states; Z85.46 Personal history of malignant neoplasm of prostate
CPT/HCPCS: 45385; 88305; J2003; J2704; J7120